=== PATIENT | male | born 1950 | race Caucasian/White ===

== ENCOUNTER 2019-03-22 08:55 | Emergency (ER) | payer OTHER, MEDICARE ==
[~2019-03-22] VITALS: Ht 177.8 cm; Wt 90.7 kg
[~2019-03-22 08:55] MED LIST: AFRIN120 MG; ALVERT; BACTRIM DS TAB1 EACH PO; CITROMAX; DEPO-TESTO100 MG/1 M; KEFLEX500 MG PO; MULTIVITAMINS1 EAC7; TAMSULOSIN HCL0.4 M1; ZYRTEC 10 MG TA10 M1 PO
[2019-03-22] MEDS ORDERED: OMEPRAZOLE20 M2 PO (09:09)
[2019-03-22] MEDS ORDERED: HYDROCODON-ACE1 EAC7 PO (10:11)
[2019-03-22 10:19] VITALS: BP 168/91
== END 2019-03-22 10:19 | disposition home or self-care (01) ==
LOC: M.ERS 08:55
DX: G89.18 Other acute postprocedural pain (principal); M25.561 Pain in right knee; Z91.048 Other nonmedicinal substance allergy status

== ENCOUNTER → 2019-07-09 | Outpatient (CLI) | payer MEDICARE, OTHER ==
[~2019-07-09] MED LIST changes: +HYDROCODON-ACE1 EAC7 PO; +OMEPRAZOLE20 M2 PO
== END ==
LOC: M.ULTRA 15:56
DX: M79.89 Other specified soft tissue disorders (principal); Z96.651 Presence of right artificial knee joint